=== PATIENT | male | born 1985 | race Caucasian/White ===

== ENCOUNTER 2024-06-23 22:04 | Inpatient (IN) | payer BC ==
[~2024-06-23] VITALS: Ht 177.8 cm; Wt 87.1 kg
[2024-06-23] MEDS: MORPHINE SULFATE 4 MG/ML INJ (FOR IV/IM USE) IV ONE (22:33)
[2024-06-23] MEDS: ONDANSETRON HCL 4MG/2ML INJ IV ONE (22:33)
[2024-06-23] MEDS: LORAZEPAM 2MG/ML INJ IV ONE (22:35)
[2024-06-23 22:49] LABS: BASOPHILS % 0.8 % (0.0-2.0); EOSINOPHILS % 0.6 % (0.0-5.0); HEMATOCRIT. 39.1 % (42.0-52.0); HEMOGLOBIN. 13.4 g/dL (14.0-18.0); LYMPHOCYTES % 13.1 % (20.0-50.0); MEAN CORPUSCULAR HEMOGLOBIN 29.1 pg (28.0-32.0); MEAN CORPUSCULAR HGB CONC 34.2 g/dL (31.0-37.0); MEAN CORPUSCULAR VOLUME 85.2 fL (80.0-94.0); MEAN PLATELET VOLUME 7.6 fl (7.4-10.4); MONOCYTES % 7.1 % (2.0-8.0); NEUTROPHILS % 78.4 % (40.0-76.0); PLATELET 254 x1000/uL (130-400); RED BLOOD CELL COUNT 4.59 mill/uL (4.7-6.1); RED CELL DISTRIBUTION WIDTH 13.4 % (11.6-14.6); WHITE BLOOD COUNT 10.4 x1000/uL (4.5-11.0)
[2024-06-23 22:55] LABS: CHLORIDE 105 mEq/L (98-107); POTASSIUM 3.9 mEq/L (3.5-5.1); SODIUM 141 mEq/L (136-145)
[2024-06-23 22:56] LABS: CARBON DIOXIDE 25 mEq/L (21-32)
[2024-06-23 22:57] LABS: CALCIUM 9.4 mg/dL (8.7-10.4)
[2024-06-23 23:01] LABS: GLUCOSE 137 mg/dL (70-105); UREA NITROGEN BLOOD 14 mg/dL (9-23)
[2024-06-23 23:03] LABS: ALANINE AMINOTRANSFERASE 24 IU/L (10-49); ALBUMIN 4.2 g/dL (3.2-4.8); ASPARTATE AMINOTRANSFERASE 24 IU/L (<34)
[2024-06-23 23:04] LABS: BILIRUBIN TOTAL 0.5 mg/dL (0.1-1.0); PROTEIN TOTAL 6.5 g/dL (6.0-8.3)
[2024-06-23 23:08] LABS: TROPONIN I HIGH SENSITIVITY < 4 ng/L (3.0-53)
[2024-06-24] MEDS ORDERED: LORA-249 MT (01:06)
[2024-06-24] MEDS ORDERED: ONDA-239 PO (01:06)
[2024-06-24] MEDS: LORAZEPAM 2MG/ML INJ IV ONE (01:41)
[2024-06-24] MEDS: METOCLOPRAMIDE HCL 10MG/2ML VIAL IV ONE (01:41)
[2024-06-24] MEDS: ONDANSETRON HCL 4MG/2ML INJ IV ONE (04:20)
[2024-06-24] MEDS: NICOTINE 21MG PATCH TD ONE (05:45)
[2024-06-24] MEDS: HALOPERIDOL LACTATE 5MG/ML VIAL IM ONE (06:00)
[2024-06-24] MEDS ORDERED: IOHEXOL-350 100 ML BOTTLE ONE (06:54)
[2024-06-24 07:56] VITALS: BP 127/62; PULSE 82; RESP 20; TEMP 36.4
[2024-06-24 08:00] VITALS: BP 132/72; PULSE 102; RESP 18; TEMP 36.8; O2SAT 20
[2024-06-24] MEDS ORDERED: ACETAMINOPHEN 325MG TABLET PO PRN (08:15)
[2024-06-24] MEDS: ONDANSETRON HCL 4MG/2ML INJ IV PRN (09:57)
[2024-06-24] MEDS: PANTOPRAZOLE SODIUM 40 MG/VIAL IV SCH (09:57)
[2024-06-24] MEDS ORDERED: METOPROLOL TARTRATE 25MG TABLET PO NR ×2 (11:15→11:30)
[2024-06-24 11:28] LABS: TROPONIN I HIGH SENSITIVITY 4 ng/L (3.0-53)
[2024-06-24 12:00] VITALS: BP 142/83; PULSE 114; RESP 16; TEMP 36.7; O2SAT 100
[2024-06-24] MEDS: FLUOXETINE HCL 20MG CAPSULE PO SCH (14:44)
[2024-06-24] MEDS: BUSPIRONE HCL 5MG TABLET PO SCH (14:44)
[2024-06-24] MEDS: MULTIVITAMINS,THER W-MINERALS TABLET PO SCH (14:44)
[2024-06-24] MEDS: BUSPIRONE HCL 10MG TABLET PO SCH (14:45)
[2024-06-24] MEDS ORDERED: METO25TA6 PO (17:00)
[2024-06-24 17:03] VITALS: BP 122/70; PULSE 76; TEMP 98.3; O2SAT 99
[2024-06-25] MEDS ORDERED: FINASTERIDE 5MG TABLET PO SCH (09:00)
[2024-06-25] MEDS ORDERED: METOPROLOL TARTRATE 25MG TABLET PO NR (09:00)
== END 2024-06-24 17:26 | disposition home or self-care (01) | DRG 392 ==
LOC: ER 22:04 → 7EST 06-24 05:31 → EDBEDREQ 06-24 05:32 → EDBEDREQTM 06-24 05:32
PROVIDERS: ADMIT Internal Medicine; ATTEND Internal Medicine
DX: R11.2 Nausea with vomiting, unspecified (principal); R07.89 Other chest pain; Z53.29 Procedure and treatment not carried out because of patient's decision for other reasons; Z86.79 Personal history of other diseases of the circulatory system
CPT/HCPCS: 36415; 71045; 71275; 74174; 80053; 83880; 84484; 85025; 85379; 86850; 86900; 99285; A4606; J1630; J2060; J2270; J2405; J2765; Q9967